=== PATIENT | female | born 1995 | race Two or more races ===

== ENCOUNTER 2018-04-25 10:36 | Observation (INO) | payer SELFPAY ==
[2018-04-25] VITALS (12 sets, daily range): BP systolic 87–103; BP diastolic 45–64
[~2018-04-25] VITALS: Ht 154.9 cm; Wt 50.8 kg
[~2018-04-25 10:36] MED LIST: HYDR-971 PO; NAPR-683 PO
[2018-04-25 11:13] LABS: BASO % 0 % (0-3); EOS # 0.1 x10^3/uL (0.0-0.7); EOS % 1 % (0-3); HEMATOCRIT 35.1 % (36.0-47.0); LYMPH # 1.4 x10^3/uL (1.0-4.8); LYMPH % 11 % (24-48); MEAN CORPUSCULAR HEMOGLOBIN 31 pg (25-35); MEAN CORPUSCULAR HGB CONC 34 g/dL (31-37); MEAN CORPUSCULAR VOLUME 91 fL (79-100); MONO # 0.4 x10^3/uL (0.0-1.1); MONO % 3 % (0-9); NEUT # 11.5 x10^3uL (1.8-7.7); NEUT % 85 % (31-73); PLATELET COUNT 298 x10^3/uL (140-400); RED BLOOD COUNT 3.86 x10^6/uL (3.50-5.40); RED CELL DISTRIBUTION WIDTH 13.8 % (11.5-14.5); WHITE BLOOD COUNT 13.5 x10^3/uL (4.0-11.0)
[2018-04-25 11:19] LABS: BILIRUBIN,URINE NEGATIVE (NEG); CLARITY,URINE TURBID; COLOR,URINE YELLOW; NITRITE,URINE NEGATIVE (NEG); PH,URINE 7.5; PROTEIN,URINE 100 mg/dL (NEG-TRACE); UROBILINOGEN,URINE 0.2 mg/dL (0.2 mg/dL)
[2018-04-25 11:28] LABS: CALCIUM 8.4 mg/dL (8.5-10.1); CREATININE 0.6 mg/dL (0.6-1.0); POTASSIUM 3.5 mmol/L (3.5-5.1)
[2018-04-25] MEDS ORDERED: BUPIVAC MPF-EPI 0.5%-1:200000 30 ML VIAL. ONE (11:31)
[2018-04-25] MEDS ORDERED: SURGICEL HEMOSTAT 4X8 EACH. ONE (11:31)
[2018-04-25 11:34] LABS: ALBUMIN 3.6 g/dL (3.4-5.0); TOTAL BILIRUBIN 0.2 mg/dL (0.2-1.0); TOTAL PROTEIN 7.2 g/dL (6.4-8.2)
[2018-04-25 11:35] LABS: AMORPHOUS SEDIMENT,UR PRESENT /HPF; BACTERIA,URINE MODERATE /HPF (0-FEW); SQUAMOUS EPITHELIAL CELL,UR FEW /LPF
[2018-04-25 11:40] LABS: BARBITURATES NEG (NEG); BENZODIAZEPINES NEG (NEG); CANNABINOIDS NEG (NEG); COCAINE NEG (NEG); METHADONE NEG (NEG); OPIATES NEG (NEG); PHENCYCLIDINE NEG (NEG)
[2018-04-25 11:43] LABS: AMPHETAMINE/METHAMPHETAMINE NEG (NEG)
[2018-04-25] MEDS ORDERED: IV NORMAL SALINE 1000ML BAG 1,000 ML IV ONE ×2 (11:45→13:00)
--- NOTE | 2018-04-25 11:58 | RAD ---
EXAM: OBSTETRIC ULTRASOUND <14 WEEKS. HISTORY: Left lower quadrant pain in . FINDINGS: Sonographic evaluation of the pelvis was performed transabdominally. A gestational sac is noted within the left adnexa measuring 6 weeks 5 days by crown-rump length. No heart motion is identified. This is separate from the ovary. Echogenic material throughout the anterior pelvis is concerning for acute hemorrhage. There is also small amount of simple fluid. The uterus is anteverted and measures 8.8 x 6.1 x 5.1 cm. A second gestational sac is positioned quite inferiorly within the lower uterine segment, but not clearly within the cervix. It is somewhat flattened and measures 4.6 x 2.1 cm. No pole is identifiable, but there is decidual reaction. The right ovary measures 4.2 x 3.4 x 2.4 cm. The left ovary measures 3.5 x 2.9 x 2.5 cm. There are no suspicious lesions. There is normal flow bilaterally. IMPRESSION: 1. Ectopic gestation in the left adnexa with evidence of acute hemorrhage. No detectable heart motion with crown-rump length corresponding with 6 weeks 5 days. 2. A second heterotopic gestation is suspected within the lower uterine segment. No pole is detectable, suggesting an anembryonic . No viable fetus is identified. These findings were called to Dr. Joiner by Artem Byrne on 04/25/2018 at 11:30 AM. Electronically signed by: Ruth Byrne MD (04/25/2018 11:55 AM) [facility]
[2018-04-25] MEDS ORDERED: MORPHINE SULFATE 10 MG/ML VIAL. IV ONE (12:00)
[2018-04-25] MEDS ORDERED: DEXAMETHASONE SOD PHOS 20 MG/5 ML VIAL. ONE (12:29)
[2018-04-25] MEDS ORDERED: ONDANSETRON PF 4 MG/2 ML VIAL. ONE (12:29)
[2018-04-25] MEDS ORDERED: PROPOFOL 20 ML IV ONE (12:29)
[2018-04-25] MEDS ORDERED: SUCCINYLCHOLINE 200 MG/10 ML VIAL. ONE (12:29)
[2018-04-25] MEDS ORDERED: MORPHINE SULFATE 2 MG/ML VIAL. IV PRN (12:30)
[2018-04-25] MEDS ORDERED: IV RINGERS,LACTATED 1000ML 1,000 ML IV SCH (12:30)
[2018-04-25] MEDS ORDERED: PROCHLORPERAZINE 10 MG/2 ML VIAL. IV PRN ×2 (12:30→14:30)
[2018-04-25] MEDS ORDERED: LIDOCAINE 1% PF 2 ML VIAL. ID PRN (12:30)
[2018-04-25] MEDS ORDERED: ROCURONIUM 50 MG/5 ML VIAL. ONE (12:30)
[2018-04-25] MEDS ORDERED: ONDANSETRON PF 4 MG/2 ML VIAL. IV PRN ×3 (12:30→14:30)
[2018-04-25] MEDS ORDERED: fentaNYL PF VIAL 100 MCG/2 ML VIAL IV PRN ×2 (12:30)
[2018-04-25] MEDS ORDERED: MORPHINE SULFATE 4 MG/ML VIAL. IV PRN (12:30)
[2018-04-25] MEDS ORDERED: HYDROmorphone 2 MG/ML VIAL IV PRN (12:30)
[2018-04-25 12:45] LABS: % BANDS 11 % (0-9); % LYMPHS 12 % (24-48); % MONOS 2 % (0-10); % SEGS 75 % (35-66); PLT ESTIMATE ADEQUATE (ADEQUATE)
[2018-04-25] MEDS ORDERED: ceFAZolin 2GM PREMIX 2 GM/50 ML BAG IV ONE (13:00)
--- NOTE | 2018-04-25 13:16 | PHYS DOC ---
Past Medical History Past Medical History: No Pertinent History Adult General Chief Complaint Chief Complaint: ABDOMINAL PAIN HPI HPI Patient is a 22 year old female Uzbek-speaking with no significant medical history 2 para 1 who presents today complaining of moderate left low quadrant abdominal pain that began today. Patient denies any vaginal bleeding. She states some last menstrual cycle was the end of January 2018. Interpretation was provided by family member [facility] Dr. Vazquez Review of Systems Review of Systems Constitutional: Denies fever or chills [] Eyes: Denies change in visual acuity, redness, or eye pain [] HENT: Denies nasal congestion or sore throat [] Respiratory: Denies cough or shortness of breath [] Cardiovascular: No additional information not addressed in HPI [] GI: Reports left lower quadrant abdominal pain, denies nausea, vomiting, bloody stools or diarrhea [] : Denies dysuria or hematuria [] Musculoskeletal: Denies back pain or joint pain [] Integument: Denies rash or skin lesions [] Neurologic: Denies headache, focal weakness or sensory changes [] All other systems were reviewed and found to be within normal limits, except as documented in this note. Current Medications Current Medications Current Medications Medications (Trade) Dose Ordered Sig/Tano Start Time Stop Time Status Last Admin Dose Admin Bupivacaine HCl/ Epinephrine Bitart (Sensorcain-Mpf Epi 0.5%-1:820707) 30 ml STK-MED ONCE 04/25/18 11:31 04/25/18 12:32 DC Cellulose (Surgicel Hemostat 4x8) 1 each STK-MED ONCE 04/25/18 11:31 04/25/18 12:32 DC Sodium Chloride 1,000 ml @ 1,000 mls/hr 1X ONCE 04/25/18 11:45 04/25/18 12:44 DC 04/25/18 11:34 1,000 MLS/HR Allergies Allergies Allergies Coded Allergies Type Severity Reaction Last Updated Verified No Known Drug Allergies 07/07/17 No Physical Exam Physical Exam Constitutional: Well developed, well nourished, no acute distress, non-toxic appearance. [] HENT: Normocephalic, atraumatic, bilateral external ears normal, oropharynx moist, no oral exudates, nose normal. [] Eyes: PERRLA, EOMI, conjunctiva normal, no discharge. [] Neck: Normal range of motion, no tenderness, supple, no stridor. [] Cardiovascular:Heart rate regular rhythm, no murmur [] Lungs & Thorax: Bilateral breath sounds clear to auscultation [] Abdomen: Patient is favoring her left lower quadrant. Bowel sounds normal, soft, no masses, no pulsatile masses. [] Pelvic exam-external pelvic appears normal, cervix appears closed, mild CMT, moderate left adnexal tenderness on exam Skin: Warm, dry, no erythema, no rash. [] Back: No tenderness, no CVA tenderness. [] Extremities: No tenderness, no cyanosis, no clubbing, ROM intact, no edema. [] Neurologic: Alert and oriented X 3, normal motor function, normal sensory function, no focal deficits noted. [] Psychologic: Affect normal, judgement normal, mood normal. [] Current Patient Data Vital Signs Vital Signs Date Time Temp Pulse Resp B/P (MAP) Pulse Ox O2 Delivery O2 Flow Rate FiO2 04/25/18 11:32 100/46 (64) Room Air 04/25/18 11:09 97.6 64 18 100 97.6 Lab Values Laboratory Tests Test 04/25/18 11:04 04/25/18 11:08 04/25/18 11:12 White Blood Count 13.5 x10^3/uL (4.0-11.0) H Red Blood Count 3.86 x10^6/uL (3.50-5.40) Hemoglobin 12.0 g/dL (12.0-15.5) Hematocrit 35.1 % (36.0-47.0) L Mean Corpuscular Volume 91 fL (79-100) Mean Corpuscular Hemoglobin 31 pg (25-35) Mean Corpuscular Hemoglobin Concent 34 g/dL (31-37) Red Cell Distribution Width 13.8 % (11.5-14.5) Platelet Count 298 x10^3/uL (140-400) Neutrophils (%) (Auto) 85 % (31-73) H Lymphocytes (%) (Auto) 11 % (24-48) L Monocytes (%) (Auto) 3 % (0-9) Eosinophils (%) (Auto) 1 % (0-3) Basophils (%) (Auto) 0 % (0-3) Neutrophils # (Auto) 11.5 x10^3uL (1.8-7.7) H Lymphocytes # (Auto) 1.4 x10^3/uL (1.0-4.8) Monocytes # (Auto) 0.4 x10^3/uL (0.0-1.1) Eosinophils # (Auto) 0.1 x10^3/uL (0.0-0.7) Basophils # (Auto) 0.0 x10^3/uL (0.0-0.2) Segmented Neutrophils % 75 % (35-66) H Band Neutrophils % 11 % (0-9) H Lymphocytes % 12 % (24-48) L Monocytes % 2 % (0-10) Platelet Estimate Adequate (ADEQUATE) Maternal Serum HCG Beta Subunit 33216 mIU/mL (0-5) H Sodium Level 140 mmol/L (136-145) Potassium Level 3.5 mmol/L (3.5-5.1) Chloride Level 104 mmol/L (98-107) Carbon Dioxide Level 24 mmol/L (21-32) Anion Gap 12 (6-14) Blood Urea Nitrogen 12 mg/dL (7-20) Creatinine 0.6 mg/dL (0.6-1.0) Estimated GFR (Cockcroft-Gault) 125.0 BUN/Creatinine Ratio 20 (6-20) Glucose Level 130 mg/dL (70-99) H Calcium Level 8.4 mg/dL (8.5-10.1) L Total Bilirubin 0.2 mg/dL (0.2-1.0) Aspartate Amino Transferase (AST) 18 U/L (15-37) Alanine Aminotransferase (ALT) 18 U/L (14-59) Alkaline Phosphatase 64 U/L (46-116) Total Protein 7.2 g/dL (6.4-8.2) Albumin 3.6 g/dL (3.4-5.0) Albumin/Globulin Ratio 1.0 (1.0-1.7) Ethyl Alcohol Level < 10 mg/dL (0-10) Urine Collection Type Void Urine Color Yellow Urine Clarity Turbid Urine pH 7.5 Urine Specific [place] 1.020 Urine Protein 100 mg/dL (NEG-TRACE) Urine Glucose (UA) Negative mg/dL (NEG) Urine Ketones (Stick) Trace mg/dL (NEG) Urine Blood Negative (NEG) Urine Nitrite Negative (NEG) Urine Bilirubin Negative (NEG) Urine Urobilinogen Dipstick 0.2 mg/dL (0.2 mg/dL) Urine Leukocyte Esterase Moderate (NEG) Urine RBC 1-2 /HPF (0-2) Urine WBC 1-4 /HPF (0-4) Urine Squamous Epithelial Cells Few /LPF Urine Amorphous Sediment Present /HPF Urine Bacteria Moderate /HPF (0-FEW) Urine Mucus Mod /LPF Urine Opiates Screen Neg (NEG) Urine Methadone Screen Neg (NEG) Urine Barbiturates Neg (NEG) Urine Phencyclidine Screen Neg (NEG) Urine Amphetamine/Methamphetamine Neg (NEG) Urine Benzodiazepines Screen Neg (NEG) Urine Cocaine Screen Neg (NEG) Urine Cannabinoids Screen Neg (NEG) Urine Ethyl Alcohol Neg (NEG) POC Urine HCG, Qualitative Hcg positive (Negative) Laboratory Tests 04/25/18 11:04 Laboratory Tests 04/25/18 11:04 Microbiology 04/25/18 Wet Prep - Final, Complete EKG EKG [] Radiology/Procedures Radiology/Procedures []PROCEDURE: OB <14 WKS W/TV EXAM: OBSTETRIC ULTRASOUND <14 WEEKS. HISTORY: Left lower quadrant pain in . FINDINGS: Sonographic evaluation of the pelvis was performed transabdominally. A gestational sac is noted within the left adnexa measuring 6 weeks 5 days by crown-rump length. No heart motion is identified. This is separate from the ovary. Echogenic material throughout the anterior pelvis is concerning for acute hemorrhage. There is also small amount of simple fluid. The uterus is anteverted and measures 8.8 x 6.1 x 5.1 cm. A second gestational sac is positioned quite inferiorly within the lower uterine segment, but not clearly within the cervix. It is somewhat flattened and measures 4.6 x 2.1 cm. No pole is identifiable, but there is decidual reaction. The right ovary measures 4.2 x 3.4 x 2.4 cm. The left ovary measures 3.5 x 2.9 x 2.5 cm. There are no suspicious lesions. There is normal flow bilaterally. IMPRESSION: 1. Ectopic gestation in the left adnexa with evidence of acute hemorrhage. No detectable heart motion with crown-rump length corresponding with 6 weeks 5 days. 2. A second heterotopic gestation is suspected within the lower uterine segment. No pole is detectable, suggesting an anembryonic . No viable fetus is identified. These findings were called to Dr. Mesa by Artem Byrne on 04/25/2018 at 11:30 AM. Electronically signed by: Ruth Byrne MD (04/25/2018 11:55 AM) [facility] DICTATED and SIGNED BY: JOSHUA BYRNE MD DATE: 04/25/18 1141 Course & Med Decision Making Course & Med Decision Making Pertinent Labs and Imaging studies reviewed. (See chart for details) This is a 22-year-old female patient presenting to the ED today with moderate left lower quadrant abdominal pain in . She is a 2 para 1. Last menstrual cycle and of January. Received a call from the radiologist stating patient has a ruptured ectopic on the left, and the second heterotopic gestation is suspected within the lower uterine segment. No pole is detectable, suggesting an anembryonic . No viable fetus is identified. 11:[address] Llanes right away who came to the ED and took patient to OR Dragon Disclaimer Dragon Disclaimer This electronic medical record was generated, in whole or in part, using a voice recognition dictation system. Departure Departure Impression: Primary Impression: Ruptured ectopic Disposition: ADMITTED INPATIENT Condition: STABLE Referrals: NO PCP (PCP) VIDHYA MESA APRN Apr 25, 2018 13:16
[2018-04-25] MEDS ORDERED: ESMOLOL 100 MG/10 ML VIAL. IV ONE (13:17)
[2018-04-25] MEDS ORDERED: GLYCOPYRROLATE 1 MG/5 ML VIAL. ONE (13:36)
[2018-04-25] MEDS ORDERED: NEOSTIGMINE METHYLSULFATE 5 MG/5 ML SYRINGE. ONE (13:36)
[2018-04-25] MEDS ORDERED: fentaNYL PF VIAL 100 MCG/2 ML VIAL ONE ×2 (14:05→14:38)
--- NOTE | 2018-04-25 14:20 | PDOC ---
BRIEF OPERATIVE NOTE Date: Apr 25, 2018 Pre-Op Diagnosis Ruptured Ectopic Post-Op Diagnosis SAme Procedure Performed [facility] Left Salpingectomy Surgeon Dr. Llanes Anesthesia Type: General Blood Loss 700 ml ( mostly blood clot) Specimens Obtained Left fallopian tube with ectopic Findings 700 ml blood clot in abd with ruptured left ectopic with active bleeding; nml Right fallopian tube and cheryl. ovaries. Complications none Operative Note see dictation RIN LLANES Jr, MD Apr 25, 2018 14:20
[2018-04-25] MEDS ORDERED: ZOLPIDEM 5 MG TABLET. PO PRN (14:30)
[2018-04-25] MEDS ORDERED: 0.9 % SODIUM CHLORIDE 10 ML DISP.SYRIN. IV PRN (14:30)
[2018-04-25] MEDS ORDERED: CALCIUM CARBONATE 500 MG TAB.CHEW PO PRN (14:30)
[2018-04-25] MEDS ORDERED: diphenhydrAMINE HCL 25 MG CAPSULE PO PRN (14:30)
[2018-04-25] MEDS ORDERED: DEXTROSE 50% 25 GM / 50ML DISP.SYRIN. IV PRN (14:30)
[2018-04-25] MEDS ORDERED: SIMETHICONE 80 MG TAB.CHEW PO PRN (14:30)
--- NOTE | 2018-04-25 14:55 | OP ---
DATE OF SURGERY: 04/25/2018 PREOPERATIVE DIAGNOSIS: Ruptured ectopic . POSTOPERATIVE DIAGNOSIS: Ruptured ectopic . PROCEDURE: Laparoscopic left salpingectomy. SURGEON: Chris Llanes MD. ANESTHESIA: GETA. ESTIMATED BLOOD LOSS: 700 mL, mostly blood clot in the abdomen. FINDINGS: About 700 mL blood clot in the abdomen with ruptured left ectopic near the cornua area with active bleeding. Normal right fallopian tube, normal ovaries bilaterally. SUMMARY: A 22-year-old 2, para 1 at about 8 weeks' gestation who presented to Emergency Department with severe abdominal pain. She was diagnosed with a ruptured ectopic requiring emergency surgery. The patient was counseled on laparoscopic unilateral salpingo-oophorectomy, risks, benefits and expectations and voiced clear understanding to proceed. DESCRIPTION OF PROCEDURE: The patient was taken to the surgery suite and placed in dorsal lithotomy position. She was prepped with ChloraPrep for abdominal prep and Betadine for vaginal prep. After adequate anesthesia, a bivalve speculum was placed vaginally. The Blogvio uterine manipulator was then placed. The bivalve speculum was removed. Attention was now placed on abdomen. Small transverse skin incision was made just below the umbilicus with a scalpel. The Veress needle was then placed through the infraumbilical incision site. The abdomen was allowed to insufflate up to 0.5 liters CO2 gas. The Veress needle was then removed, 5-mm trocar was placed. The scope was positioned. There was a large amount of blood and blood clot in the abdomen, about 700 mL. Two incision sites were made in the left lower quadrant, which one was for an 11-mm port placement, the other for 5-mm port placement. Suction torpedo worker, the blood clot and free blood was suctioned and removed. The right fallopian tube and ovary appeared normal. The left ovary appeared normal. The left fallopian tube demonstrated ectopic near the isthmus region. Again, close to the cornua region of the fallopian tube. With the aid of EnSeal device, the left fallopian tube containing the ectopic was excised. The remaining uterine tissue was fulgurated for hemostasis. The left fallopian tube containing the ectopic was removed via the Endobag. Surgicel was then placed over the left cornua region and was hemostatic. Additional suction irrigation was performed to remove as much blood clot as possible. A small amount of normal saline was left in posterior cul-de-sac. The trocars were then removed under direct visualization. The abdomen was allowed to deflate as much as possible along with mechanical manipulation. The 11-mm port site was closed at the fascial layer using 2-0 Vicryl suture in a running fashion. The 3 skin incisions were closed at the skin level using 4-0 Vicryl suture in a subcuticular manner. A 0.5% lidocaine with epinephrine was injected at each incision site. The Red Arilka uterine manipulator was then removed. The patient tolerated the procedure well and was taken to recovery room in stable condition. Sponge and needle count correct x 3. CHRIS LLANES MD DR: CHRISTIAN/dayo JOB#: [id number] / [id number]
[2018-04-25] MEDS: GABAPENTIN 300 MG CAPSULE. PO SCH ×2 (15:00→22:31)
[2018-04-25] MEDS: IV RINGERS,LACTATED 1000ML 1,000 ML IV SCH ×2 (18:00→22:40)
[2018-04-25] MEDS: KETOROLAC 30 MG/ML VIAL. IV PRN (18:38)
[2018-04-26] VITALS (12 sets, daily range): BP systolic 88–110; BP diastolic 42–62
[2018-04-26] MEDS: KETOROLAC 30 MG/ML VIAL. IV PRN (03:28)
[2018-04-26 05:15] LABS: BASO % 0 % (0-3); EOS % 0 % (0-3); LYMPH # 1.3 x10^3/uL (1.0-4.8); LYMPH % 16 % (24-48); MEAN CORPUSCULAR HEMOGLOBIN 31 pg (25-35); MEAN CORPUSCULAR HGB CONC 35 g/dL (31-37); MEAN CORPUSCULAR VOLUME 90 fL (79-100); MONO # 0.4 x10^3/uL (0.0-1.1); MONO % 6 % (0-9); NEUT % 77 % (31-73); PLATELET COUNT 199 x10^3/uL (140-400); RED BLOOD COUNT 2.26 x10^6/uL (3.50-5.40); RED CELL DISTRIBUTION WIDTH 13.5 % (11.5-14.5); WHITE BLOOD COUNT 7.8 x10^3/uL (4.0-11.0)
[2018-04-26] MEDS: IV RINGERS,LACTATED 1000ML 1,000 ML IV SCH ×2 (05:20→12:00)
[2018-04-26 05:25] LABS: CALCIUM 7.9 mg/dL (8.5-10.1); CREATININE 0.4 mg/dL (0.6-1.0); GFR 199.6; POTASSIUM 3.6 mmol/L (3.5-5.1)
[2018-04-26 05:27] LABS: HEMOGLOBIN 7.1 g/dL (12.0-15.5)
[2018-04-26 05:28] LABS: HEMATOCRIT 20.4 % (36.0-47.0)
[2018-04-26] MEDS: GABAPENTIN 300 MG CAPSULE. PO SCH ×3 (06:00→21:59)
[2018-04-26] MEDS: oxyCODONE/APAP 5/325 1 TAB TABLET PO PRN ×3 (08:09→18:04)
--- NOTE | 2018-04-26 10:57 | PDOC ---
SURGICAL PROGRESS NOTE Subjective Pt. feeling better with less pain. She has critical hgb and will need 1 Unit PRBC's transfusion today. Vital Signs Vital Signs Date Time Temp Pulse Resp B/P (MAP) Pulse Ox O2 Delivery O2 Flow Rate FiO2 04/26/18 09:14 97 Room Air 04/26/18 06:27 98.5 85 16 88/52 (64) 98.5 I&O Intake and Output 04/26/18 07:00 Intake Total 2840 ml Output Total 900 ml Balance 1940 ml Intake Oral 240 ml IV Total 2600 ml Output Urine Total 200 ml Estimated Blood Loss 700 ml # Voids 1 PATIENT HAS A GREEN: No General: Alert, Oriented X3, Cooperative HEENT: Atraumatic Lungs: Clear to auscultation Heart: Regular rate Abdomen: Normal bowel sounds, Soft, No masses Psych/Mental Status: Mental status NL Labs Laboratory Tests Test 04/25/18 11:04 04/25/18 11:08 04/25/18 11:12 04/26/18 04:35 White Blood Count 13.5 x10^3/uL (4.0-11.0) 7.8 x10^3/uL (4.0-11.0) Red Blood Count 3.86 x10^6/uL (3.50-5.40) 2.26 x10^6/uL (3.50-5.40) Hemoglobin 12.0 g/dL (12.0-15.5) 7.1 g/dL (12.0-15.5) Hematocrit 35.1 % (36.0-47.0) 20.4 % (36.0-47.0) Mean Corpuscular Volume 91 fL (79-100) 90 fL (79-100) Mean Corpuscular Hemoglobin 31 pg (25-35) 31 pg (25-35) Mean Corpuscular Hemoglobin Concent 34 g/dL (31-37) 35 g/dL (31-37) Red Cell Distribution Width 13.8 % (11.5-14.5) 13.5 % (11.5-14.5) Platelet Count 298 x10^3/uL (140-400) 199 x10^3/uL (140-400) Neutrophils (%) (Auto) 85 % (31-73) 77 % (31-73) Lymphocytes (%) (Auto) 11 % (24-48) 16 % (24-48) Monocytes (%) (Auto) 3 % (0-9) 6 % (0-9) Eosinophils (%) (Auto) 1 % (0-3) 0 % (0-3) Basophils (%) (Auto) 0 % (0-3) 0 % (0-3) Neutrophils # (Auto) 11.5 x10^3uL (1.8-7.7) 6.0 x10^3uL (1.8-7.7) Lymphocytes # (Auto) 1.4 x10^3/uL (1.0-4.8) 1.3 x10^3/uL (1.0-4.8) Monocytes # (Auto) 0.4 x10^3/uL (0.0-1.1) 0.4 x10^3/uL (0.0-1.1) Eosinophils # (Auto) 0.1 x10^3/uL (0.0-0.7) 0.0 x10^3/uL (0.0-0.7) Basophils # (Auto) 0.0 x10^3/uL (0.0-0.2) 0.0 x10^3/uL (0.0-0.2) Segmented Neutrophils % 75 % (35-66) Band Neutrophils % 11 % (0-9) Lymphocytes % 12 % (24-48) Monocytes % 2 % (0-10) Platelet Estimate Adequate (ADEQUATE) Maternal Serum HCG Beta Subunit 92023 mIU/mL (0-5) Sodium Level 140 mmol/L (136-145) 141 mmol/L (136-145) Potassium Level 3.5 mmol/L (3.5-5.1) 3.6 mmol/L (3.5-5.1) Chloride Level 104 mmol/L (98-107) 108 mmol/L (98-107) Carbon Dioxide Level 24 mmol/L (21-32) 24 mmol/L (21-32) Anion Gap 12 (6-14) 9 (6-14) Blood Urea Nitrogen 12 mg/dL (7-20) 7 mg/dL (7-20) Creatinine 0.6 mg/dL (0.6-1.0) 0.4 mg/dL (0.6-1.0) Estimated GFR (Cockcroft-Gault) 125.0 199.6 BUN/Creatinine Ratio 20 (6-20) Glucose Level 130 mg/dL (70-99) 89 mg/dL (70-99) Calcium Level 8.4 mg/dL (8.5-10.1) 7.9 mg/dL (8.5-10.1) Total Bilirubin 0.2 mg/dL (0.2-1.0) Aspartate Amino Transf (AST/SGOT) 18 U/L (15-37) Alanine Aminotransferase (ALT/SGPT) 18 U/L (14-59) Alkaline Phosphatase 64 U/L (46-116) Total Protein 7.2 g/dL (6.4-8.2) Albumin 3.6 g/dL (3.4-5.0) Albumin/Globulin Ratio 1.0 (1.0-1.7) Ethyl Alcohol Level < 10 mg/dL (0-10) Urine Collection Type Void Urine Color Yellow Urine Clarity Turbid Urine pH 7.5 Urine Specific [place] 1.020 Urine Protein 100 mg/dL (NEG-TRACE) Urine Glucose (UA) Negative mg/dL (NEG) Urine Ketones (Stick) Trace mg/dL (NEG) Urine Blood Negative (NEG) Urine Nitrite Negative (NEG) Urine Bilirubin Negative (NEG) Urine Urobilinogen Dipstick 0.2 mg/dL (0.2 mg/dL) Urine Leukocyte Esterase Moderate (NEG) Urine RBC 1-2 /HPF (0-2) Urine WBC 1-4 /HPF (0-4) Urine Squamous Epithelial Cells Few /LPF Urine Amorphous Sediment Present /HPF Urine Bacteria Moderate /HPF (0-FEW) Urine Mucus Mod /LPF Urine Opiates Screen Neg (NEG) Urine Methadone Screen Neg (NEG) Urine Barbiturates Neg (NEG) Urine Phencyclidine Screen Neg (NEG) Urine Amphetamine/Methamphetamine Neg (NEG) Urine Benzodiazepines Screen Neg (NEG) Urine Cocaine Screen Neg (NEG) Urine Cannabinoids Screen Neg (NEG) Urine Ethyl Alcohol Neg (NEG) Bedside Urine HCG, Qualitative Hcg positive (Negative) Laboratory Tests Test 04/25/18 11:04 04/25/18 11:08 04/25/18 11:12 04/26/18 04:35 White Blood Count 13.5 x10^3/uL (4.0-11.0) 7.8 x10^3/uL (4.0-11.0) Red Blood Count 3.86 x10^6/uL (3.50-5.40) 2.26 x10^6/uL (3.50-5.40) Hemoglobin 12.0 g/dL (12.0-15.5) 7.1 g/dL (12.0-15.5) Hematocrit 35.1 % (36.0-47.0) 20.4 % (36.0-47.0) Mean Corpuscular Volume 91 fL (79-100) 90 fL (79-100) Mean Corpuscular Hemoglobin 31 pg (25-35) 31 pg (25-35) Mean Corpuscular Hemoglobin Concent 34 g/dL (31-37) 35 g/dL (31-37) Red Cell Distribution Width 13.8 % (11.5-14.5) 13.5 % (11.5-14.5) Platelet Count 298 x10^3/uL (140-400) 199 x10^3/uL (140-400) Neutrophils (%) (Auto) 85 % (31-73) 77 % (31-73) Lymphocytes (%) (Auto) 11 % (24-48) 16 % (24-48) Monocytes (%) (Auto) 3 % (0-9) 6 % (0-9) Eosinophils (%) (Auto) 1 % (0-3) 0 % (0-3) Basophils (%) (Auto) 0 % (0-3) 0 % (0-3) Neutrophils # (Auto) 11.5 x10^3uL (1.8-7.7) 6.0 x10^3uL (1.8-7.7) Lymphocytes # (Auto) 1.4 x10^3/uL (1.0-4.8) 1.3 x10^3/uL (1.0-4.8) Monocytes # (Auto) 0.4 x10^3/uL (0.0-1.1) 0.4 x10^3/uL (0.0-1.1) Eosinophils # (Auto) 0.1 x10^3/uL (0.0-0.7) 0.0 x10^3/uL (0.0-0.7) Basophils # (Auto) 0.0 x10^3/uL (0.0-0.2) 0.0 x10^3/uL (0.0-0.2) Segmented Neutrophils % 75 % (35-66) Band Neutrophils % 11 % (0-9) Lymphocytes % 12 % (24-48) Monocytes % 2 % (0-10) Platelet Estimate Adequate (ADEQUATE) Maternal Serum HCG Beta Subunit 57500 mIU/mL (0-5) Sodium Level 140 mmol/L (136-145) 141 mmol/L (136-145) Potassium Level 3.5 mmol/L (3.5-5.1) 3.6 mmol/L (3.5-5.1) Chloride Level 104 mmol/L (98-107) 108 mmol/L (98-107) Carbon Dioxide Level 24 mmol/L (21-32) 24 mmol/L (21-32) Anion Gap 12 (6-14) 9 (6-14) Blood Urea Nitrogen 12 mg/dL (7-20) 7 mg/dL (7-20) Creatinine 0.6 mg/dL (0.6-1.0) 0.4 mg/dL (0.6-1.0) Estimated GFR (Cockcroft-Gault) 125.0 199.6 BUN/Creatinine Ratio 20 (6-20) Glucose Level 130 mg/dL (70-99) 89 mg/dL (70-99) Calcium Level 8.4 mg/dL (8.5-10.1) 7.9 mg/dL (8.5-10.1) Total Bilirubin 0.2 mg/dL (0.2-1.0) Aspartate Amino Transf (AST/SGOT) 18 U/L (15-37) Alanine Aminotransferase (ALT/SGPT) 18 U/L (14-59) Alkaline Phosphatase 64 U/L (46-116) Total Protein 7.2 g/dL (6.4-8.2) Albumin 3.6 g/dL (3.4-5.0) Albumin/Globulin Ratio 1.0 (1.0-1.7) Ethyl Alcohol Level < 10 mg/dL (0-10) Urine Collection Type Void Urine Color Yellow Urine Clarity Turbid Urine pH 7.5 Urine Specific [place] 1.020 Urine Protein 100 mg/dL (NEG-TRACE) Urine Glucose (UA) Negative mg/dL (NEG) Urine Ketones (Stick) Trace mg/dL (NEG) Urine Blood Negative (NEG) Urine Nitrite Negative (NEG) Urine Bilirubin Negative (NEG) Urine Urobilinogen Dipstick 0.2 mg/dL (0.2 mg/dL) Urine Leukocyte Esterase Moderate (NEG) Urine RBC 1-2 /HPF (0-2) Urine WBC 1-4 /HPF (0-4) Urine Squamous Epithelial Cells Few /LPF Urine Amorphous Sediment Present /HPF Urine Bacteria Moderate /HPF (0-FEW) Urine Mucus Mod /LPF Urine Opiates Screen Neg (NEG) Urine Methadone Screen Neg (NEG) Urine Barbiturates Neg (NEG) Urine Phencyclidine Screen Neg (NEG) Urine Amphetamine/Methamphetamine Neg (NEG) Urine Benzodiazepines Screen Neg (NEG) Urine Cocaine Screen Neg (NEG) Urine Cannabinoids Screen Neg (NEG) Urine Ethyl Alcohol Neg (NEG) Bedside Urine HCG, Qualitative Hcg positive (Negative) Assessment/Plan A: Ruptured Ectopic post op D#1 Acute blood loss anemia P: Transfuse 1 Unit PRBC's, then d/c home. RIN GARZON Jr, MD Apr 26, 2018 10:57
--- NOTE | 2018-04-26 10:58 | DISCH ---
DISCHARGE INSTRUCTIONS Condition on Discharge Condition on Discharge: Stable Activity After Discharge Activity Instructions for Disc: Activity as tolerated Lifting Instructions after Dis: No heavy lifting Driving Instructions after Dis: Do not drive today Diet after Discharge Diet after Discharge: Regular Contacting the [facility] after DC Call your doctor for: Concerns you may have Follow-Up Follow up with: Dr. Llanes in 1 week. RIN LLANES Jr, MD Apr 26, 2018 10:58
[2018-04-26] MEDS ORDERED: FERR325T14 PO (11:01)
[2018-04-26] MEDS ORDERED: NAPR-683 PO (11:01)
[2018-04-26] MEDS ORDERED: HYDR-971 PO (11:01)
[2018-04-26 18:13] LABS: HEMATOCRIT 24.7 % (36.0-47.0); HEMOGLOBIN 8.6 g/dL (12.0-15.5)
[2018-04-27 03:23] VITALS: BP 108/62
[2018-04-27] MEDS: GABAPENTIN 300 MG CAPSULE. PO SCH (06:10)
[2018-04-27] MEDS: oxyCODONE/APAP 5/325 1 TAB TABLET PO PRN ×2 (08:15→11:53)
[2018-04-27 10:45] VITALS: BP 102/58
[2018-04-27 11:45] VITALS: BP 98/55
[2018-04-27 15:28] LABS: GC PROBE Negative (Negative)
--- NOTE | 2018-04-28 17:09 | PATHOLOGY ---
[facility] Accession Number: [id number] . 01 Material submitted: . LEFT FALLOPIAN TUBE WITH CONTENTS OF ECTOPIC . 01 Clinical history: . Left fallopian tube with contents ECTOPIC . 02 Diagnosis: Left fallopian tube, laparoscopic salpingectomy: - Ectopic tubal , isthmic/cornual region, ruptured, with recent and remote hemorrhage. (JPM:[facility] 04/28/2018) QTP/04/28/2018 . 02 Electronically signed: . Will Jacques MD, Pathologist NPI- [id number] . 01 Gross description: . The specimen is received in formalin, labeled "Thai Scott, left fallopian tube with contents of ectopic ", is a detached fimbriated fallopian tube with a disrupted, roy-white predominantly hemorrhagic, friable soft tissue at the cornu/interstitium measuring 5.0 x 2.5 x 2.0 cm. The remaining fallopian tube shows a smooth, song-white serosa and a well-defined lumen. No discrete parts or grapelike cystic structures identified. Photographs are taken. . Body [employer] F[employer] Mechanic Apprentice tissues are submitted as follows: A1. Disrupted, hemorrhagic friable tissue to interstitium to isthmus A2. Additional section of disrupted, hemorrhagic tissue A3. Possible spongy placental parenchyma A4. Fallopian tube ([facility]; 04/27/2018) SHS/SHS . 02 Pathologist provided ICD-10: O00.90 . 02 CPT . 077310 Specimen Comment: A courtesy copy of this report has been sent to Specimen Comment: [phone]. Specimen Comment: Report sent to Performed at: [address], [place], [place] [id number] MD Michael Greer MD Phone: [phone] Performed at: [address] [id number] MD Will Jacques MD Phone: [phone]
== END 2018-04-27 12:35 | disposition home or self-care (01) ==
LOC: ER 10:36 → INTOOBSV 11:58 → 3 NORTH 11:58 → UNDODISIN 04-27 12:35
PROVIDERS: ADMIT Obstetrics & Gynecology; ATTEND Obstetrics & Gynecology
DX: O00.91 Unspecified ectopic pregnancy with intrauterine pregnancy (principal); D62 Acute posthemorrhagic anemia; Z79.899 Other long term (current) drug therapy; Z3A.01 Less than 8 weeks gestation of pregnancy
CPT/HCPCS: 36415; 36430; 59151; 76801; 76817; 80048; 80053; 80307; 81001; 81025; 84702; 85007; 85014; 85018; 85025; 86850; 86900; 86901; 86920; 87086; 87491; 87591; 88305; 90471; 90756; 96365; 96375; 96376; 99285; C1782; G0378; G0480; J0330; J0690; J1100; J1885; J2270; J2704; J2710; J3010; J3490; J7030; J7120; P9016; Q0111; G0379; J2405; G0479; Q2035